=== PATIENT | male | born 2000 | race Caucasian/White ===

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

== ENCOUNTER → 2020-09-18 | Outpatient (CLI) | payer BC | END | disposition home or self-care (01) | LOC: LABWHC1 12:31 | PROVIDERS: ATTEND Internal Medicine | DX: Z20.828 Contact with and (suspected) exposure to other viral communicable diseases (principal); R05 Cough | CPT/HCPCS: U0003; C9803 ==

== ENCOUNTER → 2020-11-21 | Outpatient (CLI) | payer BC | END | disposition home or self-care (01) | LOC: LABWHC1 12:55 | PROVIDERS: ATTEND Internal Medicine | DX: Z20.828 Contact with and (suspected) exposure to other viral communicable diseases (principal) | CPT/HCPCS: U0003; C9803 ==

== ENCOUNTER 2021-04-13 08:20 | Emergency (ER) | payer BC ==
[2021-04-13 08:27] VITALS: TEMP 98.3
--- NOTE | 2021-04-13 08:43 | ED ---
Lower Extremity Injury HPI - General Chief Complaint: Extremity Injury, Lower Stated Complaint: ankle injury Time Seen by Provider: 04/13/21 08:22 Source: patient, RN notes reviewed Mode of arrival: ambulatory Limitations: no limitations - History of Present Illness Initial Comments: 20-year-old male present emergency from tingling right foot pain. Patient states he had his foot ran over for the last night. Patient states that it was discomfort last several has worsened this morning and states that swallowing.Patient denies any ankle or distal foot pain states since midfoot no prior fractures or surgeries.No paresthesias. - Related Data Previous Rx's Medication Instructions Recorded Ibuprofen [Motrin] 600 mg PO Q8HR PRN #20 tab 04/13/21 Allergies Allergy/AdvReac Type Severity Reaction Status Date / Time No Known Allergies Allergy Verified 04/13/21 08:23 Review of Systems ROS Statement: Those systems with pertinent positive or pertinent negative responses have been documented in the HPI. ROS Other: All systems not noted in ROS Statement are negative. Past Medical History Past Medical History: No Reported History History of Any Multi-Drug Resistant Organisms: None Reported Past Surgical History: No Surgical Hx Reported Past Psychological History: No Psychological Hx Reported Smoking Status: Vaper Past Alcohol Use History: None Reported Past Drug Use History: None Reported General Exam Limitations: no limitations General appearance: alert, in no apparent distress Head exam: Present: atraumatic, normocephalic, normal inspection Neck exam: Present: normal inspection, full ROM. Absent: tenderness, meningismus, lymphadenopathy Respiratory exam: Present: normal lung sounds bilaterally. Absent: respiratory distress, wheezes, rales, rhonchi, stridor Cardiovascular Exam: Present: regular rate, normal rhythm, normal heart sounds. Absent: systolic murmur, diastolic murmur, rubs, gallop, clicks Extremities exam: Present: other (Right foot tenderness across the mid to proximal foot region no malleolar tenderness no proximal tib-fib tenderness no distal foot tenderness neurovascular intact) Neurological exam: Present: alert Skin exam: Present: warm, dry, intact, normal color. Absent: rash Course Vital Signs 04/13/21 08:24 Temperature 98.3 F Pulse Rate 79 Respiratory 16 Rate Blood Pressure 143/78 O2 Sat by Pulse 99 Oximetry Medical Decision Making - Medical Decision Making This a 20-year-old male presented for right foot and ankle injury. X-rays reviewed by me and radiologist there are no obvious fractures. Patient has a right foot crush injury he will follow-up with orthopedics patient will ice elevate and rest was started on anti-inflammatories. Disposition Clinical Impression: Crush injury of right foot, Contusion of right foot Disposition: HOME SELF-CARE Condition: Stable Instructions (If sedation given, give patient instructions): Foot Contusion (ED) Additional Instructions: Please return to the Emergency Department if symptoms worsen or any other concerns. Prescriptions: Ibuprofen [Motrin] 600 mg PO Q8HR PRN #20 tab PRN Reason: Pain Is patient prescribed a controlled substance at d/c from ED?: No Referrals: Sara Borges MD [Primary Care Provider] - 1-2 days Arjun Valiente MD [STAFF PHYSICIAN] - 1-2 days Time of Disposition: 09:27
--- NOTE | 2021-04-13 09:19 | XR ---
Right ankle and right foot HISTORY: Trauma and pain 3 views of the right foot, 3 views of the right ankle Bone mineralization, joint spaces and alignment are maintained. Soft tissue swelling is noted. IMPRESSION: No radiographically apparent fracture or dislocation, follow-up as indicated.
[2021-04-13 09:45] VITALS: BP 147/69; PULSE 60; RESP 18
== END 2021-04-13 09:45 | disposition home or self-care (01) ==
LOC: EC 08:20
DX: S97.81XA Crushing injury of right foot, initial encounter (principal); S90.31XA Contusion of right foot, initial encounter; W23.0XXA Caught, crushed, jammed, or pinched between moving objects, initial encounter
CPT/HCPCS: 99283

== ENCOUNTER → 2021-08-14 | Outpatient (CLI) | payer BC ==
--- NOTE | 2021-08-14 15:30 | XR ---
EXAMINATION TYPE: XR lumbosacral spine min 4V DATE OF EXAM: 08/14/2021 Comparison: None Clinical History: 21-year-old male [id number] ACUTE LBP Findings: Scattered small endplate Schmorl's nodes. The body heights are preserved and alignment is maintained though there is straightening of the normal lumbar lordosis. No pars interarticularis defect. Impression: Some scattered small endplate Schmorl's nodes may reflect very early degenerative disc disease. No v ertebral compression collapse or malalignment. Straightening of the normal lumbar lordosis could be p ositional or could reflect muscle spasm.
== END | disposition home or self-care (01) ==
LOC: RADXRYALE 10:35
PROVIDERS: ATTEND Internal Medicine
DX: M54.5 Low back pain (principal)
CPT/HCPCS: 72110

== ENCOUNTER 2025-06-10 20:07 | Emergency (ER) | payer SELFPAY ==
--- NOTE | 2025-06-10 21:16 | ED ---
General Adult HPI - General Chief complaint: Trauma Stated complaint: Fell on chest Source: patient Mode of arrival: ambulatory - History of Present Illness Initial comments: Patient is a previously 24-year-old male presenting today for chest injury. Patient states he was loading kayaks into the back of a truck when he fell out of the truck onto the left side of his chest. He landed on gravel. He did not hit his head or neck. Did not lose consciousness. Currently endorses pain along the left side of his chest and pain with taking deep breaths. Feels slightly short of breath. Denies dizziness or lightheadedness, neck pain, back pain, numbness or weakness of extremities, additional injuries. He did have "a few beers" prior to coming in. - Related Data Previous Rx's Medication Instructions Recorded Ibuprofen [Motrin] 600 mg PO Q8HR PRN #20 tab 04/13/21 Allergies Allergy/AdvReac Type Severity Reaction Status Date / Time No Known Allergies Allergy Verified 04/13/21 08:23 Review of Systems ROS Statement: Those systems with pertinent positive or pertinent negative responses have been documented in the HPI. ROS Other: All systems not noted in ROS Statement are negative. Past Medical History Past Medical History: No Reported History History of Any Multi-Drug Resistant Organisms: None Reported Past Surgical History: No Surgical Hx Reported Past Psychological History: No Psychological Hx Reported Smoking Status: Vaper Past Alcohol Use History: None Reported Past Drug Use History: None Reported General Exam - General Exam Comments Initial Comments: PE: CONSTITUTIONAL: [no apparent distress, well appearing] SKIN: [warm, dry, no jaundice, hives or petechiae] EYES:[ pupils are equally round, extraocular movements intact without nystagmus, clear conjunctiva, non-icteric sclera] HENT: [normocephalic, atraumatic, moist mucus membranes, oropharynx clear without exudates] NECK: , [Full range of motion, normal appearance no midline spinal tenderness palpation] PULMONARY: [clear to auscultation without wheezes, rhonchi, or rales, normal excursion, no accessory muscle use and no stridor, mild TTP lower left rib pain] CARDIOVASCULAR:[ regular rate, rhythm, normal S1 and S2. No appreciated murmurs, rubs or gallops. Strong radial pulses with intact distal perfusion. No lower extremity edema] GASTROINTESTINAL: [soft, active bowel sounds throughout, non-tender, non-diste nded, no palpable masses, no rebound or guarding. No hepatosplenomegaly] GENITOURINARY: MUSCULOSKELETAL: [Extremities have no gross deformity, no edema, redness, or swelling. No calf swelling, extremities are nontender to palpation, equal strength in all 4 extremities no midline spinal tenderness to] NEUROLOGIC: [_a/o x 3, GCS 15, normal mentation and speech. Moves all extremities x 4 without motor or sensory deficit] PSYCHIATRIC:[ _normal mood and affect, thought process is clear and linear] Course Vital Signs 06/10/25 20:49 Temperature 98.6 F Pulse Rate 85 Respiratory 16 Rate Blood Pressure 143/76 O2 Sat by Pulse 98 Oximetry EKG Findings - EKG Comments: EKG Findings:: Sinus rhythm, rate 74 bpm intervals 1 except limits, normal axis, no significant ST elevations or depressions, no delta waves or Brugada pattern Medical Decision Making - Medical Decision Making Was pt. sent in by a medical professional or institution (, PA, [employer], urgent care, hospital, or residential...) When possible be specific @ -[No] Did you speak to anyone other than the patient for history (EMS, parent, family, police, friend...)? What history was obtained from this source @ -[No] Did you review nursing and triage notes (agree or disagree)? Why? @ -[I reviewed nursing and triage notes] Were old charts reviewed (outside hosp., previous admission, EMS record, old EKG, old radiological studies, urgent care reports/EKG's, residential records)? Report findings @ -[Medical records reviewed] Differential Diagnosis (chest pain, altered mental status, abdominal pain women, abdominal pain men, vaginal bleeding, weakness, fever, dyspnea, syncope, headache, dizziness, GI bleed, back pain, seizure, CVA, palpatations, mental health, musculoskeletal)? @ -[not applicable] EKG interpreted by me (3pts min.). @ -[As above] X-rays interpreted by me (1pt min.). @ -[None done] CT interpreted by me (1pt min.). @ -[None done] U/S interpreted by me (1pt. min.). @ -[None done] What testing was considered but not performed or refused? (CT, X-rays, U/S, labs)? Why? @ -[None] What meds were considered but not given or refused? Why? @ -[None] Did you discuss the management of the patient with other professionals (professionals i.e. , PA, [employer] WORK[employer], lab, RT, psych nurse, social security assessor, combination window installer, teacher, recreation officer, vocational case manager)? Give summary @ -[No] Was smoking cessation discussed for >3mins.? @ -[No] Was critical care preformed (if so, how long)? @ -[No] Were there social determinants of health that impacted care today? How? (Homelessness, low income, unemployed, alcoholism, drug addiction, transportation, low edu. Level, literacy, decrease access to med. care, shelter, rehab)? @ -[No] Was there de-escalation of care discussed even if they declined (Discuss DNR or withdrawal of care, Hospice)? @ -[No] What co-morbidities impacted this encounter? (DM, HTN, Smoking, COPD, CAD, Cancer, CVA, ARF, Chemo, Hep., AIDS, mental health diagnosis, sleep apnea, morbid obesity)? @ -[None] Was patient admitted / discharged? Hospital course, mention meds given and route, prescriptions, significant lab abnormalities, going to OR and other pertinent info. @ -[hospital course] pleasant 24-year-old male presenting after left falling out of a truck bed 4 feet onto gravel with left rib pain. Vital signs stable on arrival. On my assessment patient well-appearing, respirations unlabored. Lungs clear to auscultation bilaterally. Extremities head and neck are atraumatic. He does have mild tenderness palpation left lower rib cage. Discussed plan for Toradol, x-ray ribs and EKG EKG unremarkable. Chest x-ray unremarkable. Discussed with patient plan for discharge, he was directed to use Tylenol and ibuprofen as needed for pain control. Discussed signs and symptoms to monitor for warranting return to the ER such as worsening shortness of breath, sudden worsening of pain or uncontrolled pain, fevers, hemoptysis or increased sputum production. Undiagnosed new problem with uncertain prognosis? @ -[No] Drug Therapy requiring intensive monitoring for toxicity (Heparin, Nitro, Insulin, Cardizem)? @ -[No] Were any procedures done? @ -[No] Diagnosis/symptom? @Contusion Acute, or Chronic, or Acute on Chronic? Acute Uncomplicated (without systemic symptoms) or Complicated (systemic symptoms)? @ -[default] Side effects of treatment? @ -[No] Exacerbation, Progression, or Severe Exacerbation? @ -[No] Poses a threat to life or bodily function? How? (Chest pain, [place], [place], pneumonia, PE, COPD, DKA, ARF, appy, cholecystitis, CVA, Diverticulitis, Homicidal, Suicidal, threat to staff... and all critical care pts) @ -[No] Disposition Clinical Impression: Contusion of rib on left side Disposition: HOME SELF-CARE Condition: Good Instructions (If sedation given, give patient instructions): Contusion in Adults (ED) Additional Instructions: Every disease is a spectrum and a small chance still exists that a serious condition could develop, for this reason, please monitor yourself closely for new, changing or worsening symptoms, symptoms that do not improve over the next 48 hours, sudden worsening of pain or sudden onset shortness of breath, lightheadedness or dizziness or episodes of passing out, coughing up blood or thick sputum, uncontrolled pain, fever, inability to tolerate/keep down fluids or your medications, inability to follow up with outpatient providers as instructed and should you experience these symptoms or should you have any further concerns for your wellbeing please return to the ED or call 911 immediately. Your pain can be treated with ibuprofen and acetaminophen. You can take up to 400-600 mg of ibuprofen (Advil, Motrin) 3 times daily (every 8 hours) but can also use lower doses if this relieves your pain. Some people prefer naproxen (Aleve, Naprosyn) which can be taken in doses of 500 mg up to twice a day. Do not take both of these medicines together, and do not combine either with ketorolac (Toradol), meloxicam (Mobic), or indomethacin (Tivorbex). Some people can develop stomach discomfort with higher doses of either ibuprofen or naproxen, if this develops decrease your dose or stop taking it. If you need to take this dose daily for more than a week, please schedule an appointment for re-evaluation with your PCP. Please take these medications with food. If you are taking a blood thinner (i.e. Eliquis, Xarelto, Plavix, Warfarin/Coumadin, etc), DO NOT TAKE NSAIDS. They will increase your risk for bleeding. You make take a cetaminophen for pain and/or any other medications prescribed by your doctor. You can take up to 1000 mg of acetaminophen (Tylenol) every 6 hours. Be careful as this is included in some medicines like Nyquil, [place], Percocet, Vicodin, STANBACK, Goody's Powders, and Excedrin. You can also use lidocaine patches for topical pain. You can purchase 4% patches over the counter at most drug stores. These can be helpful for pain from your muscles or bones. PLEASE call your primary care physician as soon as possible to arrange / discuss plan for followup appointment. Appointment in the next 1-3 days is strongly encouraged if possible. PLEASE let us know here before you leave if there is anything further we can do to be of any assistance. Take care and feel Better! Is patient prescribed a controlled substance at d/c from ED?: No Referrals: Sara Borges MD [Primary Care Provider] - 1-2 days
--- NOTE | 2025-06-10 21:41 | XR ---
EXAMINATION TYPE: XR ribs bilat w pa chest xray DATE OF EXAM: 06/10/2025 9:37 PM COMPARISON: Prior chest radiograph 10/04/2019. CLINICAL INDICATION: Male, 24 years old with history of fall from truck, left lower rib pain; [facility], magdiel in TECHNIQUE: XR ribs bilat w pa chest xray; Frontal and oblique views of the ribs with frontal chest ra diograph. FINDINGS: The ribs have a normal appearance. No evidence of fracture. Overall, the lungs are clear. The cardiac silhouette is normal in size. The remaining osseous structures are intact. IMPRESSION: No acute osseous pathology. [facility], , 06/10/2025 9:39 PM
[2025-06-10] MEDS: KETOROLAC 15 MG/ML 1 ML VIAL IM STA (21:55)
[2025-06-10] MEDS: LIDOCAINE 4% PATCH TOPICAL ONE (21:56)
[2025-06-10 22:42] VITALS: BP 140/55; PULSE 64; RESP 18; TEMP 98.1
== END 2025-06-10 22:42 | disposition home or self-care (01) ==
LOC: EC 20:07
DX: S20.212A Contusion of left front wall of thorax, initial encounter (principal); F17.290 Nicotine dependence, other tobacco product, uncomplicated; W20.8XXA Other cause of strike by thrown, projected or falling object, initial encounter; Y93.16 Activity, rowing, canoeing, kayaking, rafting and tubing
CPT/HCPCS: 71111; 99284; 96372; J1885